=== PATIENT | male | born 2000 | race Caucasian/White ===

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

== ENCOUNTER → 2020-09-11 | Outpatient (CLI) | payer OTHER ==
[2020-09-11 15:58] LABS: BASOPHILS ABSOLUTE AUTO 0.07 K/mm3 (0.00-0.23); BASOPHILS PERCENT AUTO 1 % (0-2); EOSINOPHILS ABSOLUTE AUTO 0.22 K/mm3 (0.00-0.68); EOSINOPHILS PERCENT AUTO 5 % (0-6); Hematocrit 46.9 % (37.0-53.0); Hemoglobin 15.3 g/dL (13.5-17.5); IMMATURE GRAN ABSOLUTE AUTO 0.01 K/mm3 (0.00-0.10); IMMATURE GRAN PERCENT AUTO 0 % (0-1); LYMPHOCYTES ABSOLUTE AUTO 1.79 K/mm3 (0.84-5.20); LYMPHOCYTES PERCENT AUTO 37 % (21-46); MONOCYTES PERCENT AUTO 6 % (4-13); Mean Corpuscular HGB 28.6 pg (26.0-34.0); Mean Corpuscular HGB Conc 32.6 g/dL (31.5-36.5); Mean Corpuscular Volume 88 fL (80-100); Mean Platelet Volume 11.8 fL (9.1-12.4); NEUTROPHILS ABSOLUTE AUTO 2.52 K/mm3 (1.96-9.15); NEUTROPHILS PERCENT AUTO 51 % (41-73); Platelet Count 200 K/mm3 (150-400); RDW Coefficient Variation 13.4 % (11.7-14.2); RDW Standard Deviation 42.5 fL (35.1-46.3); Red Blood Cell Count 5.35 M/mm3 (4.30-5.90); White Blood Cell Count 4.91 K/mm3 (4.00-11.30)
[2020-09-11 16:25] LABS: Alanine Aminotransfer (ALT/SGP 32 U/L (12-78); Albumin, Blood 4.4 g/dL (3.4-5.0); Albumin/Globulin Ratio 1.3 (0.8-1.8); Alk Phos 110 U/L (50-136); Anion Gap 4 mmol/L (6-16); Aspartate Aminotrans (AST/SGOT 23 U/L (12-37); Bilirubin, Total 0.9 mg/dL (0.1-1.0); Blood Urea Nitrogen 14 mg/dL (8-24); Bun/Creatinine Ratio 13.2 (12.0-20.0); CO2, Blood 31 mmol/L (21-32); Calcium, Blood 9.3 mg/dL (8.5-10.1); Chloride, Blood 109 mmol/L (98-108); Creatinine, Blood 1.06 mg/dL (0.60-1.20); Globulin, Blood 3.4 g/dL (2.2-4.0); Glomerular Filtration Rate >60 (60-); Glucose, Blood 90 mg/dL (70-99); Potassium, Blood 4.1 mmol/L (3.5-5.5); Sodium, Blood 144 mmol/L (136-145); Total Protein, Blood 7.8 g/dL (6.4-8.2)
== END ==
LOC: LAB SHORT 15:10 → PLD 15:10
PROVIDERS: Nurse Practitioner Family
DX: E55.9 Vitamin D deficiency, unspecified (principal); R53.83 Other fatigue
CPT/HCPCS: 36415; 80053; 82306; 85025

== ENCOUNTER 2024-05-15 11:42 | Emergency (ER) | payer OTHER ==
[~2024-05-15] VITALS: Ht 167.6 cm; Wt 104.3 kg
[2024-05-15 15:49] VITALS: BP 138/89
== END 2024-05-15 16:10 | disposition home or self-care (01) ==
LOC: ER 11:42
DX: R07.9 Chest pain, unspecified (principal); F41.1 Generalized anxiety disorder; G89.29 Other chronic pain; M54.6 Pain in thoracic spine
CPT/HCPCS: 93005; 93010; 99284-25

== ENCOUNTER 2025-09-01 03:55 | Emergency (ER) | payer OTHER ==
[~2025-09-01] VITALS: Ht 170.2 cm; Wt 99.8 kg
[2025-09-01 04:03] VITALS: BP 130/78
[2025-09-01] MEDS ORDERED: Miconazole Nitrate 28 GM CREAM..G. TOP ONE (04:20)
== END 2025-09-01 04:34 | disposition home or self-care (01) ==
LOC: ER 03:55
DX: L29.9 Pruritus, unspecified (principal); Z59.89 Other problems related to housing and economic circumstances
CPT/HCPCS: 99282; A9270